=== PATIENT | female | born 1945 ===

== ENCOUNTER 2022-05-15 07:00 | Inpatient (IN) | payer OTHER ==
[~2022-05-15] VITALS: Ht 142.2 cm; Wt 96.2 kg
[2022-05-15] MEDS ORDERED: SYNTH PO (08:45)
[2022-05-15] MEDS ORDERED: METOP PO (08:46)
[2022-05-15] MEDS ORDERED: ATACAND PO (08:46)
[2022-05-21] MEDS ORDERED: METOPROLOL SUCC25 MG (13:54)
[2022-05-21] MEDS ORDERED: LEVO-T25 MCG (13:54)
[2022-05-21] MEDS ORDERED: CANDESARTAN CILE4 MG (13:54)
[2022-05-21] MEDS ORDERED: COLACE100 MG PO (15:30)
[2022-05-21] MEDS ORDERED: AMOX-CLAV 875-1 EACH PO (15:31)
[2022-05-21] MEDS ORDERED: NEURONTIN800 MG PO (15:31)
[2022-05-21] MEDS ORDERED: MEDROLPACK PO (15:31)
[2022-05-21] MEDS ORDERED: PERCOCET 5-3251 EACH PO (15:31)
== END 2022-05-23 14:14 | disposition home or self-care (01) | DRG 455 ==
LOC: O/R 05-21 06:21 → PED 05-21 06:21 → SURH 05-21 07:00 → PED 05-21 19:10
PROVIDERS: ADMIT Orthopaedic Surgery Orthopaedic Surgery of the Spine; ATTEND Orthopaedic Surgery Orthopaedic Surgery of the Spine
PROC: 0SG0071 Fusion of Lumbar Vertebral Joint with Autologous Tissue Substitute, Posterior Approach, Posterior Column, Open Approach (ICD-10-PCS; 2022-05-21)
PROC: XRGD0R7 Fusion of Lumbosacral Joint using Custom-Made Anatomically Designed Interbody Fusion Device, Open Approach, New Technology Group 7 (ICD-10-PCS; 2022-05-21)
PROC: 0SG3071 Fusion of Lumbosacral Joint with Autologous Tissue Substitute, Posterior Approach, Posterior Column, Open Approach (ICD-10-PCS; 2022-05-21)
PROC: 0ST40ZZ Resection of Lumbosacral Disc, Open Approach (ICD-10-PCS; 2022-05-21)
PROC: 0ST20ZZ Resection of Lumbar Vertebral Disc, Open Approach (ICD-10-PCS; 2022-05-21)
PROC: 0QB30ZZ Excision of Left Pelvic Bone, Open Approach (ICD-10-PCS; 2022-05-21)
PROC: 07DR0ZZ Extraction of Iliac Bone Marrow, Open Approach (ICD-10-PCS; 2022-05-21)
PROC: XRGB0R7 Fusion of Lumbar Vertebral Joint using Custom-Made Anatomically Designed Interbody Fusion Device, Open Approach, New Technology Group 7 (ICD-10-PCS; principal; 2022-05-21 18:30)
DX: M48.062 Spinal stenosis, lumbar region with neurogenic claudication (principal); M48.07 Spinal stenosis, lumbosacral region; M41.56 Other secondary scoliosis, lumbar region; M41.57 Other secondary scoliosis, lumbosacral region; M43.16 Spondylolisthesis, lumbar region; M43.17 Spondylolisthesis, lumbosacral region; M54.17 Radiculopathy, lumbosacral region; I10 Essential (primary) hypertension; E03.9 Hypothyroidism, unspecified